=== PATIENT | female | born 1960 | race Caucasian/White ===

== ENCOUNTER 2019-05-19 10:30 | Emergency (ER) | payer BC ==
[2019-05-19 10:58] VITALS: BP 141/58
--- NOTE | 2019-05-19 11:27 | UC ---
Eye Complaint HPI - HPI Summary HPI Summary: 59-year-old female comes in with a chief complaint of left I itching crustiness and drainage. She woke up with this this morning. Denies any concern of foreign body. She does wear glasses does not wear contacts. No upper respiratory tract infection symptoms. - History of Current Complaint Chief Complaint: UCEye Stated Complaint: EYE ISSUE Time Seen by Provider: 05/19/19 11:20 Pain Intensity: 1 - Allergies/Home Medications Allergies/Adverse Reactions: Allergies Allergy/AdvReac Type Severity Reaction Status Date / Time No Known Allergies Allergy Verified 05/19/19 10:58 PMH/Surg Hx/FS Hx/Imm Hx Previously Healthy: Yes - Surgical History Surgical History: None - Family History Known Family History: Positive: Non-Contributory - Social History Alcohol Use: None Substance Use Type: None Smoking Status (MU): Never Smoked Tobacco Review of Systems All Other Systems Reviewed And Are Negative: Yes Constitutional: Positive: Negative Skin: Positive: Negative Eyes: Positive: Drainage, Eye Redness ENT: Positive: Negative Respiratory: Positive: Negative Cardiovascular: Positive: Negative Gastrointestinal: Positive: Negative Motor: Positive: Negative Neurovascular: Positive: Negative Musculoskeletal: Positive: Negative Neurological: Positive: Negative Psychological: Positive: Negative Is Patient Immunocompromised?: No Physical Exam Triage Information Reviewed: Yes Appearance: Well-Appearing, No Pain Distress, Well-Nourished Vital Signs: Initial Vital Signs Temp 97.9 F 05/19/19 10:54 Pulse 75 05/19/19 10:54 Resp 18 05/19/19 10:54 BP 141/58 05/19/19 10:54 Pulse Ox 98 05/19/19 10:54 Vital Signs Reviewed: Yes Eyes: Positive: Conjunctiva Inflamed - LEFT, Discharge - LEFT, Other: - PERRLA EOMI. No foreign body seen on exam. No hyphema. ENT: Negative: Nasal drainage Neck: Positive: Supple Respiratory: Positive: Lungs clear, Normal breath sounds, No respiratory distress Cardiovascular: Positive: RRR Musculoskeletal: Positive: Strength Intact, ROM Intact Neurological: Positive: Alert, Muscle Tone Normal Psychological: Positive: Age Appropriate Behavior Skin Exam: Normal Eye Complaint Course/Dx - Differential Dx/Diagnosis Provider Diagnosis: Conjunctivitis Discharge ED - Sign-Out/Discharge Documenting (check all that apply): Patient Departure All imaging exams completed and their final reports reviewed: No Studies - Discharge Plan Condition: Stable Disposition: HOME Prescriptions: Tobramycin 0.3% OPHTH.ARNALDO* 1 drop LEFT EYE Q4H #1 btl Patient Education Materials: Conjunctivitis (ED) Forms: *Work Release Referrals: [facility] [Provider Group] Additional Instructions: FOLLOW UP WITH OPHTHALMOLOGY IF NOT COMPLETELY IMPROVED. GET RECHECKED SOONER IF YOUR CONDITION WORSENS OR ANY QUESTIONS OR CONCERNS. - Billing Disposition and Condition Condition: STABLE Disposition: Home
== END 2019-05-19 11:48 | disposition home or self-care (01) ==
LOC: UCEAST 10:30
DX: H10.9 Unspecified conjunctivitis (principal)
CPT/HCPCS: 99202; G0463

== ENCOUNTER 2019-07-30 13:34 | Emergency (ER) | payer BC ==
[2019-07-30 13:55] VITALS: BP 133/70
--- NOTE | 2019-07-30 14:30 | UC ---
Upper Extremity HPI - HPI Summary HPI Summary: fell in parking lot last even when slipped on ice. had R forearm pain after fall but was able to move wrist, hand and elbow. today, elbow is swollen and arm hurts when turning hand over, also sees swelling in elbow - History of Current Complaint Chief Complaint: UCUpperExtremity Stated Complaint: ARM INJURY Time Seen by Provider: 07/30/19 14:16 Hx Obtained From: Patient ?: No Onset/Duration: Sudden Onset Severity Initially: Moderate Severity Currently: Moderate Pain Intensity: 6 Location Of Pain: Is Discrete @ - R elbow Aggravating Factor(s): Movement Alleviating Factor(s): Other: - position Associated Signs And Symptoms: Positive: Swelling, Bruising - Allergies/Home Medications Allergies/Adverse Reactions: Allergies Allergy/AdvReac Type Severity Reaction Status Date / Time No Known Allergies Allergy Verified 07/30/19 13:55 PMH/Surg Hx/FS Hx/Imm Hx Previously Healthy: Yes - Surgical History Surgical History: None - Family History Known Family History: Positive: Non-Contributory - Social History Occupation: Employed Full-time Lives: With Family Alcohol Use: None Substance Use Type: None Smoking Status (MU): Never Smoked Tobacco Review of Systems All Other Systems Reviewed And Are Negative: Yes Constitutional: Positive: Negative Respiratory: Positive: Negative Cardiovascular: Positive: Negative Musculoskeletal: Positive: Other: - R elbow pain Neurological: Positive: Negative Psychological: Positive: Negative Is Patient Immunocompromised?: No Physical Exam Triage Information Reviewed: Yes Appearance: Well-Appearing, No Pain Distress, Well-Nourished Vital Signs: Initial Vital Signs Temp 98 F 07/30/19 13:53 Pulse 69 07/30/19 13:53 Resp 16 07/30/19 13:53 BP 133/70 07/30/19 13:53 Pulse Ox 99 07/30/19 13:53 Vital Signs Reviewed: Yes Respiratory Exam: Normal Respiratory: Positive: Lungs clear Cardiovascular Exam: Normal Cardiovascular: Positive: RRR Musculoskeletal: Positive: ROM Limited @ - R elbow pain, swelling, pain with suppination Neurological Exam: Normal Psychological Exam: Normal Skin Exam: Other - ecchymosis R elbow Diagnostics - Radiology No standard instances Radiology Interpretation Completed By: Radiologist - impaction fracture R radial head Upper Extremity Course/Dx - Differential Dx/Diagnosis Differential Diagnosis/HQI/PQRI: Fracture (Closed), Strain, Sprain Provider Diagnosis: Fracture of radial head, closed Discharge ED - Sign-Out/Discharge Documenting (check all that apply): Patient Departure All imaging exams completed and their final reports reviewed: Yes - Discharge Plan Condition: Good Disposition: HOME Patient Education Materials: Elbow Fracture (ED) Referrals: No Primary Care Phys,NOPCP [Primary Care Provider] - Lucian Matta MD [Medical Doctor] - 2 Days (Call this Thursday to schedule follow- up for fractured elbow) Additional Instructions: apply ice and elevate right arm use sling until seen by orthopedics ibuprofen 600mg every 6 hours as needed for pain (take with food) - Billing Disposition and Condition Condition: GOOD Disposition: Home
== END 2019-07-30 15:05 | disposition home or self-care (01) ==
LOC: UCEAST 13:34
DX: S52.121A Displaced fracture of head of right radius, initial encounter for closed fracture (principal); W00.0XXA Fall on same level due to ice and snow, initial encounter; Y92.9 Unspecified place or not applicable
CPT/HCPCS: 99212; G0463

== ENCOUNTER 2019-10-11 10:45 | Emergency (ER) | payer BC ==
--- OUTSIDE RECORDS SUMMARY | 2019-10-11 10:50 | XMS REPORT | Continuity of Care Document ---
:1960 External Reference #:[id number] Author Name Lucero Farley M.D. 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 Onset: 08/01/2019 Social History Type Date Description Comments Sex Unknown ETOH Use Denies alcohol use Tobacco Use Start: Unknown Patient has never smoked Smoking Status Reviewed: 08/15/19 Patient has never smoked Exercise Type/Frequency Exercises regularly Allergies, Adverse Reactions, Alerts Description No Known Drug Allergies Medications Description No Active Medications Immunizations Description No Information Available Vital Signs Date Vital Result Comment 08/15/2019 3:58pm Height 62 inches 5'2" Weight 130.00 lb Heart Rate 63 /min Body Temperature 97.5 F Pain Level 0 O2 % BldC Oximetry 98 % BMI (Body Mass Index) 23.8 kg/m2 08/01/2019 2:08pm Height 61 inches 5'1" Weight 131.00 lb Heart Rate 71 /min BP Systolic 132 mmHg BP Diastolic 88 mmHg Respiratory Rate 18 /min Body Temperature 98.1 F Pain Level 6 O2 % BldC Oximetry 98 % BMI (Body Mass Index) 24.7 kg/m2 Results Description No Information Available Procedures Description No Information Available Medical Devices Description No Information Available Encounters Description No Information Available Assessments Date Code Description Provider 08/15/2019 S52.121D Displaced fracture of head of right radius, Lucero Farley M.D. subsequent encounter for closed fracture with routine healing 08/15/2019 M25.521 Pain in right elbow Lucero Farley M.D. 08/01/2019 M25.521 Pain in right elbow Lucero Farley M.D. 08/01/2019 M25.562 Pain in left knee Lucero Farley M.D. 08/01/2019 S52.121A Displaced fracture of head of right radius, Lucero Farley M.D. initial encounter for closed fracture Plan of Treatment Future Appointment(s):09/14/2019 9:00 am - Lucero Farley M.D. at [facility]08/15/2019 - Lucero Farley M.D.S52.121D Displaced fracture of head of right radius, subsequent encounter for closed fracture with routine healingFollow up:Follow up: 3 [id number] Pain in right elbow Functional Status Description No Information Available Mental Status Description No Information Available Referrals Description No Information Available
--- OUTSIDE RECORDS SUMMARY | 2019-10-11 10:50 | XMS REPORT | Continuity of Care Document ---
:1960 External Reference #:[id number] Author Name Lucero Farley M.D. 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 Onset: 08/01/2019 Social History Type Date Description Comments Sex Unknown ETOH Use Denies alcohol use Tobacco Use Start: Unknown Patient has never smoked Smoking Status Reviewed: 10/05/19 Patient has never smoked Exercise Type/Frequency Exercises regularly Allergies, Adverse Reactions, Alerts Description No Known Drug Allergies Medications Description No Active Medications Immunizations Description No Information Available Vital Signs Date Vital Result Comment 10/05/2019 11:08am Height 62 inches 5'2" Weight 130.00 lb Heart Rate 60 /min BP Systolic 110 mmHg BP Diastolic 62 mmHg Respiratory Rate 18 /min Pain Level 0 BMI (Body Mass Index) 23.8 kg/m2 08/15/2019 3:58pm Height 62 inches 5'2" Weight 130.00 lb Heart Rate 63 /min Body Temperature 97.5 F Pain Level 0 O2 % BldC Oximetry 98 % BMI (Body Mass Index) 23.8 kg/m2 Results Description No Information Available Procedures Description No Information Available Medical Devices Description No Information Available Encounters Type Date Location Provider Dx Diagnosis Office Visit 08/15/2019 Awa Farley, S52.121D Disp fx of head 3:15p at [facility] of r radius, subs for clos fx w routn heal M25.521 Pain in right elbow Office Visit 08/01/2019 2:00p Awa Farley M25.521 Pain in right at [facility] elbow M25.562 Pain in left knee S52.121A Disp fx of head of right radius, init for clos fx W18.39xA Other fall on same level, initial encounter Assessments Date Code Description Provider 08/15/2019 S52.121D [...] Farley M.D. initial encounter for closed fracture 08/01/2019 W18.39xA Other fall on same level, initial encounter Lucero Farley M.D. Plan of Treatment No Information Available Functional Status Description No Information Available Mental Status Description No Information Available Referrals Description No Information Available
[2019-10-11 11:05] VITALS: BP 124/72
--- NOTE | 2019-10-11 11:07 | UC ---
Ear Complaint HPI - HPI Summary HPI Summary: 59 yo female presents with ear pain. She tells me that for the last 4 days she has had sinus pain/pressure/congestion, post nasal drip, dry cough, and left ear pain. She has been taking tylenol/ibuprofen with no relief. She has felt feverish, but has not taken her temperature. Last night she noticed some yellow- ace discharge from her left ear. Denies rash, sore throat, SOB, abdominal pain, n/v - History of Current Complaint Chief Complaint: UCGeneralIllness Stated Complaint: EAR PAIN HEAD / CHEST CONGESTION Time Seen by Provider: 10/11/19 11:06 Hx Obtained From: Patient Onset/Duration: Gradual Onset Severity Initially: Moderate Severity Currently: Severe Pain Intensity: 9 Pain Scale Used: 0-10 Numeric - Allergies/Home Medications Allergies/Adverse Reactions: Allergies Allergy/AdvReac Type Severity Reaction Status Date / Time No Known Allergies Allergy Verified 07/30/19 13:55 Home Medications: Home Medications Amoxicillin PO (*) [Amoxicillin 875 MG (*)] 875 mg PO BID #14 tab 10/11/19 [Rx] Neomyc/Polym/HC 1% OTIC SUSP* [Cortisporin Otic Susp 1%*] 4 drop LEFT EAR TID # 1 btl 10/11/19 [Rx] PMH/Surg Hx/FS Hx/Imm Hx - Additional Past Medical History Additional PMH: None - Surgical History Surgical History: None - Family History Known Family History: Positive: Hypertension - Social History Lives: With Family Alcohol Use: None Substance Use Type: None Smoking Status (MU): Never Smoked Tobacco Review of Systems All Other Systems Reviewed And Are Negative: No Constitutional: Positive: Fever Skin: Positive: Negative Eyes: Positive: Negative ENT: Positive: Ear Ache, Nasal Discharge, Sinus Congestion, Sinus Pain/ Tenderness Respiratory: Positive: Cough Cardiovascular: Positive: Negative Gastrointestinal: Positive: Negative Neurological/Mental Status: Positive: Negative Psychological: Positive: Negative Physical Exam - Summary Physical Exam Summary: GENERAL: NAD. WDWN. No pain distress. SKIN: No rashes, sores, lesions, or open wounds. HEENT: Head: AT/NC Eyes: EOM intact. Conjunctiva clear without inflammation or discharge. Ears: Hearing grossly normal. LEFT TM with mild erythema and bulging. Clear drainage within canal. RIGHT TM WNL and intact. Nose: Nasal mucosa pink and moist without rhinorrhea. TTP maxillary and frontal sinus. Throat: Posterior oropharynx without exudates, erythema, or tonsillar enlargement. Uvula midline. NECK: Supple. Nontender. No lymphadenopathy. CHEST: CTAB. No r/r/w. No accessory muscle use. Breathing comfortably and in no distress. CV: RRR. Without m/r/g. Pulses intact. NEURO: Alert. PSYCH: Age appropriate behavior. Triage Information Reviewed: Yes Vital Signs: Initial Vital Signs Temp 99.9 F 10/11/19 11:01 Pulse 91 10/11/19 11:01 Resp 20 10/11/19 11:01 BP 124/72 10/11/19 11:01 Pulse Ox 96 10/11/19 11:01 Vital Signs Reviewed: Yes Ear Complaint Course/Dx - Course Course Of Treatment: Otitis media - Differential Dx/Diagnosis Provider Diagnosis: Otitis media Discharge ED - Sign-Out/Discharge Documenting (check all that apply): Patient Departure All imaging exams completed and their final reports reviewed: No Studies - Discharge Plan Condition: Stable Disposition: HOME Prescriptions: Amoxicillin PO (*) [Amoxicillin 875 MG (*)] 875 mg PO BID #14 tab Neomyc/Polym/HC 1% OTIC SUSP* [Cortisporin Otic Susp 1%*] 4 drop LEFT EAR TID # 1 btl Patient Education Materials: Ear Infection (ED) Referrals: No Primary Care Phys,NOPCP [Primary Care Provider] - Additional Instructions: If you develop a fever, shortness of breath, chest pain, new or worsening symptoms - please call your PCP or go to the ED immediately. - Billing Disposition and Condition Condition: STABLE Disposition: Home
== END 2019-10-11 11:23 | disposition home or self-care (01) ==
LOC: UCEAST 10:45
DX: H66.92 Otitis media, unspecified, left ear (principal); R09.81 Nasal congestion; R09.89 Other specified symptoms and signs involving the circulatory and respiratory systems; R05 Cough
CPT/HCPCS: 99212; G0463

== ENCOUNTER 2019-10-13 16:50 | Emergency (ER) | payer BC ==
[2019-10-13 17:39] LABS: Influenza A Molecular Negative (Negative); Influenza B Molecular Negative (Negative)
[2019-10-13] MEDS ORDERED: Ibuprofen TAB* 600 MG PO ONE (20:01)
--- NOTE | 2019-10-13 20:04 | ED ---
Throat Pain/Nasal Congestion - HPI Summary HPI Summary: 51-year-old female presents to the emergency department today complaining of bilateral ear pain, fever, nasal congestion, cough 5 days. Patient states she was seen at urgent care approximately 2 days ago and given ear drops and amoxicillin for ear infection. Patient does not believe these medications are working as she is still in 8 out of 10 pain. Patient also endorses associated headache. Patient denies rash, nausea, vomiting, diarrhea, pain with urination. Patient has been taking amoxicillin for 2 days. - History of Current Complaint Chief Complaint: EDFluSymptoms Time Seen by Provider: 10/13/19 19:48 Hx Obtained From: Patient Onset/Duration: Gradual Onset Severity: Severe Associated Signs And Symptoms: Positive: Sinus Discomfort, Nasal Discharge Cough: Nonproductive - Allergies/Home Medications Allergies/Adverse Reactions: Allergies Allergy/AdvReac Type Severity Reaction Status Date / Time No Known Allergies Allergy Verified 10/13/19 20:03 Home Medications: Home Medications Amoxicillin PO (*) [Amoxicillin 875 MG (*)] 875 mg PO BID #14 tab 10/11/19 [Rx Confirmed 10/13/19] Neomyc/Polym/HC 1% OTIC SUSP* [Cortisporin Otic Susp 1%*] 4 drop LEFT EAR TID # 1 btl 10/11/19 [Rx Confirmed 10/13/19] Amoxicillin/Clavulanate TAB* [Augmentin TAB 875*] 875 mg PO BID 7 Days #14 tab 10/13/19 [Rx] PMH/Surg Hx/FS Hx/Imm Hx Endocrine/Hematology History: Denies: Hx Diabetes, Hx Thyroid Disease Cardiovascular History: Denies: Hx Hypertension Respiratory History: Denies: Hx Asthma, Hx Chronic Obstructive Pulmonary Disease (COPD) GI History: Denies: Hx Ulcer Infectious Disease History: No Infectious Disease History: Denies: Hx Hepatitis, Hx Human Immunodeficiency Virus (HIV), Traveled Outside the [place] in Last 30 Days - Family History Known Family History: Positive: Hypertension, Non-Contributory - Social History Alcohol Use: None Substance Use Type: Reports: None Smoking Status (MU): Never Smoked Tobacco Review of Systems Positive: Fever, Fatigue Positive: Ear Ache, Nasal Discharge Cardiovascular: Negative Positive: Cough. Negative: Shortness Of Breath Gastrointestinal: Negative Genitourinary: Negative Musculoskeletal: Negative Skin: Negative Positive: Headache Positive: Anxious. Negative: Depressed All Other Systems Reviewed And Are Negative: Yes Physical Exam - Summary Physical Exam Summary: Patient is in no acute distress. Inspection of the right tympanic membrane is within normal limits. Left tympanic membrane is erythematous and bulging. External canal is nontender with no debris or exudate noted. Triage Information Reviewed: Yes Vital Signs On Initial Exam: Initial Vitals Temp Pulse Resp BP Pulse Ox 99 F 88 16 146/75 99 10/13/19 17:03 10/13/19 17:03 10/13/19 17:03 10/13/19 17:03 10/13/19 17:03 Vital Signs Reviewed: Yes Appearance: Positive: Well-Appearing, No Pain Distress, Well-Nourished Skin: Positive: Warm, Skin Color Reflects Adequate Perfusion Eyes: Positive: EOMI, YRN ENT: Positive: Hearing grossly normal Respiratory/Lung Sounds: Positive: Clear to Auscultation, Breath Sounds Present Cardiovascular: Positive: RRR, S1, S2 Abdomen Description: Positive: Nontender, Soft Bowel Sounds: Positive: Present Musculoskeletal: Positive: Strength/ROM Intact Neurological: Positive: Sensory/Motor Intact, Alert, Oriented to Person Place, Time, Normal Gait, Facial Symmetry, Speech Normal Psychiatric: Positive: Normal, Affect/Mood Appropriate AVPU Assessment: Alert Procedures - Sedation Patient Received Moderate/Deep Sedation with Procedure: No Diagnostics - Vital Signs Vital Signs Temp Pulse Resp BP Pulse Ox 10/13/19 18:59 99.4 F 80 14 143/78 96 10/13/19 17:03 99 F 88 16 146/75 99 - Laboratory Lab Results: Lab Results 10/13/19 Range/Units 17:05 Influenza A (Rapid) Negative (Negative) Influenza B (Rapid) Negative (Negative) Lab Statement: Any lab studies that have been ordered have been reviewed, and results considered in the medical decision making process. EENT Course/Dx - Course Course Of Treatment: Patient was evaluated in the emergency department today for ear pain. Vitals noted. Patient given Tylenol for fever and pain. Physical exam is consistent with left-sided otitis media. Chest x-ray negative for pneumonia. Influenza serology negative. Patient given 1 dose of Augmentin in the emergency department and is written a prescription for Augmentin as amoxicillin was ineffective. Patient discharged outpatient follow-up. - Differential Diagnoses Differential Diagnoses: Influenza, Otitis Media, Sinusitis - Diagnoses Provider Diagnoses: Otitis media Discharge ED - Sign-Out/Discharge Documenting (check all that apply): Patient Departure - Discharge Plan Condition: Stable Disposition: HOME Prescriptions: Amoxicillin/Clavulanate TAB* [Augmentin TAB 875*] 875 mg PO BID 7 Days #14 tab Patient Education Materials: Ear Infection (ED) Referrals: Deven Morales MD [Primary Care Provider] - 3 Days Additional Instructions: Please take Tylenol 650 mg every 6 hours alternated with ibuprofen 600 mg every 6 hours as needed for pain and fever. Please take antibiotic Augmentin 875 mg every 12 hours for 7 days. Please finish the course even if you began feeling better. Follow-up with your primary care provider in 3-5 days for further evaluation and management. Please return to this emergency Department immediately if you develop any new or worsening symptoms. - Billing Disposition and Condition Condition: STABLE Disposition: Home
[2019-10-13] MEDS ORDERED: Amoxicillin/Clavulanate TAB* 875 MG PO ONE (20:21)
[2019-10-13 20:35] VITALS: BP 134/65
== END 2019-10-13 20:33 | disposition home or self-care (01) ==
LOC: ED 16:50
DX: H66.93 Otitis media, unspecified, bilateral (principal); R51 Headache; F41.9 Anxiety disorder, unspecified
CPT/HCPCS: 71046; 99282; A9270-GY